=== PATIENT | female | born 2000 | race Caucasian/White ===

== ENCOUNTER 2018-12-23 11:57 | Emergency (ER) | payer MEDICAID, SELFPAY ==
[2018-12-23 12:00] VITALS: BP 110/65; PULSE 85; RESP 16; TEMP 36.8; O2SAT 98; BMI 25.7
--- NOTE | 2018-12-23 12:11 | RAD_ITS ---
STUDY: X-RAY - LEFT HAND, ATTENTION FOURTH FINGER REASON FOR EXAM: Female, 18 years old. Injury of the fourth finger playing rugby yesterday, pain TECHNIQUE: 3 view(s) of the finger were obtained. COMPARISON: None. FINDINGS: Normal metacarpal head. Normal metacarpophalangeal joint. Normal proximal phalanx. Normal middle phalanx. Longitudinally oriented fracture at the dorsal base of the fourth distal phalanx with mild degree of displacement (1.1 mm). There is associated soft tissue swelling. Normal proximal interphalangeal joint. Normal distal interphalangeal joint. RAD/Finger(s) Min 2 Views IMPRESSION: Hyperflexion avulsion fracture at the base of the fourth distal phalanx. Electronically Signed: Zaid Blevins MD ([place]) at 12:33 EDT , Service support ,
[2018-12-23] MEDS: Acetaminophen 500 MG Tablet 1000 MG PO (12:14)
--- NOTE | 2018-12-23 12:55 | ED.VISSUMM ---
- ER Visit Summary Date of Service: 12/23/18 Chief Complaint: Finger injury History of Present Illness: The patient is a 18 F who injured her left ring finger on a rugby jersey last night. She is unable to extend the distal portion of the finger. She is right-hand dominant. Physical Examination: Swelling, bruising, tenderness to the distal phalanx of the left ring finger. Patient is unable to completely extend at the DIP joint. Test Results: Patient has a hyperflexion type avulsion fracture of the distal phalanx. Emergency Department Course and Treatment: Patient was placed in a splint with her finger extended. She was given mallet finger precautions. She will be referred to hand surgery for follow-up. Treatment Plan: As above Disposition: Discharge Impression: Left ring finger mallet finger This note was generated with [employer] dictation software. It may contain incorrect words, spelling, and punctuation that were not noted in review of the chart prior to signing ED Disposition - Plan for ED Patient: Referrals: Care Physician,No Primary [Primary Care Provider] -
--- NOTE | 2018-12-23 12:57 | ED.DEP ---
ED Disposition - Plan for ED Patient: Instructions: Reji Alvarez Referrals: Dat Rogers MD [STAFF PHYSICIAN] - Chadwick Gibson MD [NON-STAFF] -
[2018-12-23 13:09] VITALS: PULSE 86; RESP 17; O2SAT 98
== END 2018-12-23 13:11 | disposition home or self-care (01) ==
LOC: ED 12:37
PROVIDERS: Emergency Provider Emergency Medicine
DX: M20.012 Mallet finger of left finger(s) (principal); Y93.63 Activity, rugby
CPT/HCPCS: 73140; 99283

== ENCOUNTER 2019-01-05 15:59 | Emergency (ER) | payer MEDICAID, SELFPAY ==
[2019-01-05 16:01] VITALS: BP 145/71; PULSE 97; RESP 17; TEMP 35.9; O2SAT 97; BMI 25.3
--- NOTE | 2019-01-05 16:30 | RAD_ITS ---
STUDY: X-RAY - LEFT HAND REASON FOR EXAM: Female, 18 years old. Fourth digit pain. Trauma. TECHNIQUE: 3 view(s) of the hand. COMPARISON: None. FINDINGS: There is an intra-articular fracture at the base of the distal phalanx of the right fourth finger with overlying soft tissue swelling. The remainder of the visualized osseous structures are intact. There are no significant degenerative changes. There are no radiodense foreign bodies. RAD/Hand Min 3 Views IMPRESSION: Intra-articular fracture at the base of the distal phalanx of the right fourth finger. Soft tissue swelling. Electronically Signed: Marcin Chahal, at 17:15 EDT Tel , Service support ,
[2019-01-05] MEDS: Naproxen 500 MG Tablet PO (16:37)
--- NOTE | 2019-01-05 17:10 | ED.VIS.UPPEX ---
History of Present Illness Informant: Patient Occurred: Yesterday Mechanism/Context: Injury Onset: Yesterday Context: Sudden Onset Timing: Continuous Quality of Pain: Sharp Location: left ring finger Current Severity: Moderate Maximum Severity: Moderate Worsened by: Movement Relieved by: Breast Associated Symptoms: Negative for: Parasthesia, Weakness, Loss of Funtion Narrative: 20-year-old female [id number] presents with a left ring finger injury. 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 Diagnosed with a mallet finger nearly 2 weeks ago at this facility. She was wearing a splint but accidentally smacked her finger against the doorway of her house and is concerned for worsened injury. No numbness or tingling or weakness. She is not having any other injuries of her hand. She denies any history of injury or surgery to this finger. Tetanus Immunization: Unknown Prior similar symptoms: Yes Recent Illness/Hospitalization: No <Jacek Brown - Last Filed: 01/05/19 17:29> <Keila Gill - Last Filed: 01/05/19 17:37> Chief Complaint: Upper Extremity Injury Past Medical History Prior records reviewed: Yes Past Medical History: None Surgical History: no surgical history Lives: With Family Smoking Status: Never smoker <Jacek Brown - Last Filed: 01/05/19 17:29> <Keila Gill - Last Filed: 01/05/19 17:37> - Allergies and Home Meds Allergies/Adverse Reactions: Allergies aspirin Allergy (Verified 01/05/19 15:59) Angioedema Primary Care Physician: Regan Roberts MD [Primary Care Provider] - Fredy Fortune MD [NON-STAFF] - Review of Systems All systems negative except as indicated Musculoskeletal: Reports: Swelling, Extremity Pain Skin: Denies: Wounds Neurological: Denies: Weakness, Parasthesia, Numbness <Jacek Brown - Last Filed: 01/05/19 17:29> Physical Exam Vital Signs/Narrative: Vital Signs Temp Pulse Resp BP Pulse Ox 01/05/19 16:01 96.7 F L 97 17 145/71 H 97 Inital Vital Signs reviewed: Yes Left Finger: - - Pain swelling and bruising of the distal phalanx of her left ringfinger. No subungual hematoma. Capillary refill and sensation are both normal. Two-point discrimination normal. She is able to fully flex and extend but it does cause a significant amount of pain. No other bony tenderness of the hand. Normal range of motion actively at the MCP PIP and DIP joint of left ring finger <Jacek Brown - Last Filed: 01/05/19 17:29> Vital Signs/Narrative: Vital Signs Temp Pulse Resp BP Pulse Ox 01/05/19 16:01 96.7 F L 97 17 145/71 H 97 <Keila Gill - Last Filed: 01/05/19 17:37> Diagnostic/Tx/Re-eval - Medical Decision Making X-ray demonstrates intra-articular fracture base of the distal phalanx right fourth finger. Patient placed in a finger splint and will be referred to orthopedics. Advised to rest ice elevate. She states that she has a leave to take at home. She will be discharged Impressions Hand X-Ray 01/05/19 16:30 IMPRESSION: Intra-articular fracture at the base of the distal phalanx of the right fourth finger. Soft tissue swelling. Electronically Signed: Marcin Chahal, at 17:15 EDT Tel , Service support , 01/05/19 16:30 Xray Hand [Hand Min 3 Views] [RAD] Stat Extra <Jacek Brown - Last Filed: 01/05/19 17:29> - Medical Decision Making Right fourth finger seen with Jacek agree with the above prior injury she has ability to flex and extend but complains of pain x-ray shows fracture finger splint we applied for appropriate mobilization she will refer to hand service she understands it follow-up <Keila Gill - Last Filed: 01/05/19 17:37> ED Disposition <Jacek Brown - Last Filed: 01/05/19 17:29> <Keila Gill - Last Filed: 01/05/19 17:37> - Plan for ED Patient: Disposition: Home or Assisted Living Diagnosis: Fracture, finger, distal phalanx Instructions: FRACTURE, Finger (Closed) Referrals: Regan Roberts MD [Primary Care Provider] - Fredy Fortune MD [NON-STAFF] -
== END 2019-01-05 17:40 | disposition home or self-care (01) ==
PROVIDERS: Emergency Provider Physician Assistant Medical; Family Provider Pediatrics; PCP Pediatrics
DX: S62.635A Displaced fracture of distal phalanx of left ring finger, initial encounter for closed fracture (principal); W22.09XA Striking against other stationary object, initial encounter; Y92.009 Unspecified place in unspecified non-institutional (private) residence as the place of occurrence of the external cause; Y99.9 Unspecified external cause status
CPT/HCPCS: 73130; 99283

== ENCOUNTER 2019-05-01 15:50 | Emergency (ER) | payer MEDICAID, SELFPAY ==
[2019-05-01 15:51] VITALS: BP 125/86; PULSE 98; RESP 16; TEMP 37.2; O2SAT 98; BMI 26.4
[2019-05-01 17:21] VITALS: BP 108/81; PULSE 74; O2SAT 97
[2019-05-01 17:23] VITALS: O2SAT 98
--- NOTE | 2019-05-01 17:58 | ED.VISSUMM ---
- ER Visit Summary Date of Service: 05/01/19 Chief Complaint: Cough History of Present Illness: The patient is a 18 F who presents with a cough. This is been ongoing for the past 3 weeks. She states that he really makes her symptoms better or worse. She does admit to nasal congestion and sinus pressure. Her cough is nonproductive. She has tried Robitussin and cough drops without any relief. She denies fevers. She did get a flu shot this year. She went to the wellness center at the [facility]. Her oxygen level was 95% as they told her she should come to the emergency department. She is a non-smoker. Physical Examination: Vital signs reviewed. HEENT exam unremarkable. Heart is regular rate and rhythm without murmurs. Lungs are clear to auscultation. Abdomen is soft and nontender. Extremities reveal no edema. Skin exam normal. Neurologic exam normal. Test Results: None performed Emergency Department Course and Treatment: The patient is well-appearing. Her SPO2 is 99% currently. Her lung sounds are clear. I do not feel she needs a chest x-ray. Since it has been ongoing for 3 weeks I will give her a azithromycin and an albuterol inhaler. She will follow-up with her PCP and the wellness center. Treatment Plan: [] Disposition: Discharge Impression: Acute bronchitis This note was generated with [employer] dictation software. It may contain incorrect words, spelling, and punctuation that were not noted in review of the chart prior to signing ED Disposition - Plan for ED Patient: Disposition: Home or Assisted Living Instructions: BRONCHITIS, Antiobiotic Treatment (Adult) Prescriptions: Albuterol Inhaler [Ventolin Hfa] 1 - 2 puff INHALATION Q4H PRN PRN #1 inhaler PRN Reason: Wheezing Transmission Status: Pending to [facility] #[id number] Azithromycin [Zithromax Z-Bruce] 250 mg PO UD #1 box Transmission Status: Pending to [facility] #[id number] Referrals: Regan Roberts MD [Primary Care Provider] - Additional Instructions: Your prescriptions were electronically transmitted to [facility]
== END 2019-05-01 18:06 | disposition home or self-care (01) ==
PROVIDERS: Emergency Provider Emergency Medicine; PCP Pediatrics
DX: J20.9 Acute bronchitis, unspecified (principal); F32.9 Major depressive disorder, single episode, unspecified; Z79.899 Other long term (current) drug therapy
CPT/HCPCS: 99282

== ENCOUNTER 2019-12-08 18:51 | Emergency (ER) | payer MEDICAID, SELFPAY ==
[2019-12-08 18:51] VITALS: BP 127/82; PULSE 95; RESP 16; TEMP 36.2; O2SAT 100; BMI 25.7
--- NOTE | 2019-12-08 19:06 | ED.VIS.GEN ---
History of Present Illness Chief Complaint: Female C/O Informant: Patient Narrative: Patient presents with vaginal itching for a few days. There is no vaginal discharge there is no dyspareunia she just finished her menstrual cycle a few days ago. She has no abdominal pain. She has no vaginal bleeding. Past Medical History - Allergies and Home Meds Allergies/Adverse Reactions: Allergies aspirin Allergy (Verified 12/08/19 18:53) Angioedema Primary Care Physician: Regan Roberts MD [Primary Care Provider] - Past Medical History: - Surgical History: no surgical history Smoking Status: Never smoker Review of Systems General: Denies: Fever Cardiovascular: Denies: Chest pain Respiratory: Denies: Dyspnea, Cough Gastrointestinal: Denies: Abdominal pain, Nausea, Vomiting Genitourinary: Reports: - - Vaginal itching. Denies: Dysuria, Hematuria, Frequency Musculoskeletal: Denies: Myalgias Skin: Denies: Rash, Abscess Neurological: Reports: Headache Physical Exam Vital Signs/Narrative: Vital Signs Temp Pulse Resp BP Pulse Ox 12/08/19 18:51 97.2 F L 95 16 127/82 H 100 General: Well nourished Respiratory: No distress, CTA bilaterally Abdomen: Soft, Nontender : - - Normal external genitalia, vaginal irritation. No discharge present. Back: Negative for: CVA tenderness Extremities: No edema Skin: Normal color Diagnostic/Tx/Re-eval - Medical Decision Making She has unremarkable work-up, her symptoms are consistent with Karlie. I did warn her that I do not know the GC and Chlamydia tests results and will not know for another day or 2 days. She does not want to get treated right now she does not think she is at high risk. I will give her Diflucan. Otherwise I will discharge her in stable condition she is told precautions as far as no sex until the results are back and if they are positive to inform her partners. ED Disposition - Plan for ED Patient: Disposition: Home or Assisted Living Diagnosis: Vaginitis Instructions: Vaginal Infection: Yeast (Candidiasis) Referrals: Regan Roberts MD [Primary Care Provider] - 3-5 Days
[2019-12-08 19:21] LABS: Mucous, Urine 0 SEEN /hpf (<or=2+); Red Blood Cells-Urine 0 SEEN /hpf (0-5)
[2019-12-08 19:28] LABS: Color, Urine Straw (Yellow); Glucose, Dipstick Normal (Normal); Ketone-Dipstick Negative (Negative); Leukocyte Esterase-Dipstick 100 /ul (Negative); Nitrite-Dipstick Negative (Negative); Occult Blood-Urine 10 /ul (Negative); Protein-Dipstick Negative (Negative); Urine Bilirubin Dipstick Negative (Negative); Urine Clarity Clear (Clear); Urine Urobilinogen Normal (Normal)
[2019-12-08 19:41] LABS: Bacteria RARE /hpf (None Seen); Squamous Epithelial Cells - UA 0-5 SEEN /hpf (5-10); White Blood Cells 0-5 SEEN /hpf (0-5)
[2019-12-08] MEDS: Fluconazole 100 MG Tablet 200 MG PO (21:30)
[2019-12-08 21:33] VITALS: BP 120/84; PULSE 88; RESP 16; O2SAT 100
[2019-12-08 21:54] LABS: Chlamydia Trachomatis by PCR Negative (Negative); Neisserai gonorrhoeae by PCR Negative (Negative); Probe Check PASS; Sample Adequacy Control PASS; Specimen Processing Control PASS
== END 2019-12-08 21:33 | disposition home or self-care (01) ==
PROVIDERS: Emergency Provider Emergency Medicine; PCP Pediatrics
DX: N76.0 Acute vaginitis (principal)
CPT/HCPCS: 81001; 87491; 87591; 99283